=== PATIENT | female | born 1955 | race Caucasian/White ===

== ENCOUNTER 2023-03-13 19:16 | Inpatient (IN) | payer OTHER, MEDICARE ==
[~2023-03-13] VITALS: Ht 152.4 cm; Wt 52.6 kg
[~2023-03-13 19:16] MED LIST: CIPR500T4; QUET50TA; VIC
[2023-03-13 19:18] VITALS: BP 138/88; PULSE 62; RESP 22; TEMP 97.6; O2SAT 94
[2023-03-13 20:42] LABS: BASOPHILS % (AUTO) 0.7 % (0.0-2.0); EOSINOPHILS # (AUTO) 0.1 K/uL (0-0.4); HEMATOCRIT 46.2 % (36-48); HEMOGLOBIN 15.5 g/dL (12.0-16.0); LYMPHOCYTES % (AUTO) 13.6 % (20.5-51.1); MEAN CORPUSCULAR HEMOGLOBIN 34 pg (27-31); MEAN CORPUSCULAR HGB CONC 34 g/dL (33-37); MEAN CORPUSCULAR VOLUME 101.3 fL (80-94); MONOCYTES # (AUTO) 0.7 K/uL (0.8-1.0); MONOCYTES % (AUTO) 9.8 % (1.7-9.3); NEUTROPHILS # (AUTO) 5.4 K/uL (1.8-7.7); NEUTROPHILS % (AUTO) 74.9 % (42.2-75.2); PLATELET COUNT (AUTO) 330 K/uL (140-450); RED BLOOD CELL COUNT(AUTO) 4.56 MIL/uL (4.20-5.40); RED CELL DISTRIBUTION WIDTH 14.1 % (11.6-13.7); WHITE BLOOD COUNT (AUTO) 7.2 K/uL (4.8-10.8)
[2023-03-13 21:08] LABS: ALBUMIN 2.8 g/dL (3.4-5.0); ANION GAP 15.3 (8-16); CALCIUM 8.5 mg/dL (8.5-10.1); CARBON DIOXIDE 28.1 mmol/L (21-32); CREATININE 0.6 mg/dL (0.6-1.3); POTASSIUM 3.4 mmol/L (3.5-5.1); TOTAL BILIRUBIN 0.6 mg/dL (0.0-1.0); TOTAL PROTEIN, SERUM 6.3 g/dL (6.4-8.2)
[2023-03-13] MEDS ORDERED: MAGNESIUM OXIDE 400 MG TAB PO PRN (22:50)
[2023-03-13] MEDS ORDERED: POTASSIUM CHLORIDE 10 MEQ TABER PO PRN (22:50)
[2023-03-13] MEDS ORDERED: ACETAMINOPHEN 325 MG TAB PO PRN (22:50)
[2023-03-13] MEDS ORDERED: KCL 20 MEQ IN 100 mL PREMIX 200 ML IV PRN (22:50)
[2023-03-13] MEDS ORDERED: MAG SULF 2000 MG/WATER PREMIX 50 ML IV PRN (22:50)
[2023-03-13] MEDS: NACL 0.9% 1,000 ML IV SCH (23:47)
[2023-03-14] VITALS (8 sets, daily range): BP systolic 154–165; BP diastolic 83–87; PULSE 68–87; RESP 18–20; TEMP 98–98.3; O2SAT 95–99
[2023-03-14 00:16] LABS: APPEARANCE,URINE CLEAR (CLEAR); BILIRUBIN,URINE 2+ (NEGATIVE); BLOOD, URINE NEGATIVE (NEGATIVE); COLOR,URINE YELLOW (YELLOW); LEUKOCYTE ESTERASE ,URINE NEGATIVE (NEGATIVE); NITRITE, URINE POSITIVE (NEGATIVE); PROTEIN,URINE TRACE (NEGATIVE); UGLUCOSE NEGATIVE (NEGATIVE)
[2023-03-14 00:25] LABS: ICTOTEST POSITIVE (NEGATIVE)
[2023-03-14 00:26] LABS: BACTERIA,URINE 10-30 (MOD) /HPF (None Seen); MUCUS,URINE 1+ /LPF (None Seen); RBC,URINE 0-5 /HPF (0-5); WBC,URINE 0-5 /HPF (0-5)
[2023-03-14] MEDS: HYDROcodone/APAP 5/325 MG 1 TAB TAB PO PRN (03:42)
[2023-03-14] MEDS ORDERED: SENN-74 PO (06:35)
[2023-03-14] MEDS ORDERED: ONDA-188 SL (06:35)
[2023-03-14] MEDS ORDERED: ASPI-1749 PO (06:35)
[2023-03-14] MEDS ORDERED: FURO20TA8 PO (06:35)
[2023-03-14] MEDS ORDERED: TRAM100C PO (06:35)
[2023-03-14] MEDS: NACL 0.9% 1,000 ML IV SCH ×2 (09:33→21:59)
[2023-03-14] MEDS ORDERED: ALBUTEROL 0.083% 2.5 MG/3 ML NEBU INH PRN (14:20)
[2023-03-14] MEDS: ALBUTEROL SULFATE/IPRATROPIU 3 ML SOL IH SCH (20:15)
[2023-03-14] MEDS: PIPERACILLIN/TAZOBACTAM 3.375 GM in DEXTROSE 5% 50 ML IV SCH (21:33)
[2023-03-14] MEDS: methylPREDNISolone SS 40 MG/ML VIAL IVP SCH (21:33)
[2023-03-14] MEDS: ONDANSETRON 4 MG/2 ML VIAL IVP PRN (21:44)
[2023-03-14] MEDS: MORPHINE SULFATE 4 MG/ML SYR IVP PRN (21:45)
[2023-03-15] VITALS (9 sets, daily range): BP systolic 121–154; BP diastolic 69–91; PULSE 60–79; RESP 18–20; TEMP 97.4–97.7; O2SAT 95–100
[2023-03-15] MEDS: HYDROcodone/APAP 5/325 MG 1 TAB TAB PO PRN (00:49)
[2023-03-15] MEDS: ALBUTEROL SULFATE/IPRATROPIU 3 ML SOL IH SCH ×4 (01:00→19:00)
[2023-03-15] MEDS: PIPERACILLIN/TAZOBACTAM 3.375 GM in DEXTROSE 5% 50 ML IV SCH ×3 (04:35→20:58)
[2023-03-15] MEDS: methylPREDNISolone SS 40 MG/ML VIAL IVP SCH ×2 (10:17→20:56)
[2023-03-15] MEDS: QUEtiapine FUMARATE 25 MG TAB PO SCH (10:18)
[2023-03-15] MEDS: MORPHINE SULFATE 4 MG/ML SYR IVP PRN (10:20)
[2023-03-15] MEDS: ONDANSETRON 4 MG/2 ML VIAL IVP PRN (10:30)
[2023-03-15] MEDS: NACL 0.9% 1,000 ML IV SCH (12:22)
[2023-03-15 18:05] LABS: BASOPHILS % (AUTO) 0.3 % (0.0-2.0); HEMATOCRIT 44.5 % (36-48); HEMOGLOBIN 14.8 g/dL (12.0-16.0); LYMPHOCYTES # (AUTO) 0.3 K/uL (2.5-16.5); LYMPHOCYTES % (AUTO) 6.4 % (20.5-51.1); MEAN CORPUSCULAR HEMOGLOBIN 34 pg (27-31); MEAN CORPUSCULAR HGB CONC 33 g/dL (33-37); MEAN CORPUSCULAR VOLUME 102.1 fL (80-94); MONOCYTES # (AUTO) 0.1 K/uL (0.8-1.0); MONOCYTES % (AUTO) 2.3 % (1.7-9.3); NEUTROPHILS # (AUTO) 4.1 K/uL (1.8-7.7); PLATELET COUNT (AUTO) 240 K/uL (140-450); RED BLOOD CELL COUNT(AUTO) 4.36 MIL/uL (4.20-5.40); RED CELL DISTRIBUTION WIDTH 14.2 % (11.6-13.7); WHITE BLOOD COUNT (AUTO) 4.5 K/uL (4.8-10.8)
[2023-03-15 18:30] LABS: ANION GAP 14.8 (8-16); CALCIUM 8.3 mg/dL (8.5-10.1); CREATININE 0.5 mg/dL (0.6-1.3); POTASSIUM 4.8 mmol/L (3.5-5.1)
[2023-03-16] MEDS: ALBUTEROL SULFATE/IPRATROPIU 3 ML SOL IH SCH (01:56)
[2023-03-16 01:57] VITALS: PULSE 70; RESP 18; O2SAT 97
[2023-03-16] MEDS: NACL 0.9% 1,000 ML IV SCH ×2 (02:14→13:20)
[2023-03-16 04:00] VITALS: BP 118/65; PULSE 75; RESP 18; TEMP 97.6; O2SAT 96
[2023-03-16] MEDS: PIPERACILLIN/TAZOBACTAM 3.375 GM in DEXTROSE 5% 50 ML IV SCH ×3 (05:08→22:00)
[2023-03-16 07:00] LABS: BASOPHILS % (AUTO) 0.1 % (0.0-2.0); HEMATOCRIT 44.2 % (36-48); HEMOGLOBIN 14.8 g/dL (12.0-16.0); LYMPHOCYTES # (AUTO) 0.3 K/uL (2.5-16.5); LYMPHOCYTES % (AUTO) 5.8 % (20.5-51.1); MEAN CORPUSCULAR HEMOGLOBIN 34 pg (27-31); MEAN CORPUSCULAR HGB CONC 34 g/dL (33-37); MEAN CORPUSCULAR VOLUME 101.9 fL (80-94); MONOCYTES # (AUTO) 0.2 K/uL (0.8-1.0); MONOCYTES % (AUTO) 4.6 % (1.7-9.3); NEUTROPHILS # (AUTO) 4.6 K/uL (1.8-7.7); NEUTROPHILS % (AUTO) 89.5 % (42.2-75.2); PLATELET COUNT (AUTO) 227 K/uL (140-450); RED BLOOD CELL COUNT(AUTO) 4.34 MIL/uL (4.20-5.40); WHITE BLOOD COUNT (AUTO) 5.2 K/uL (4.8-10.8)
[2023-03-16 07:15] LABS: ALBUMIN 2.6 g/dL (3.4-5.0); ANION GAP 11.3 (8-16); CALCIUM 8.3 mg/dL (8.5-10.1); CARBON DIOXIDE 29.7 mmol/L (21-32); CREATININE 0.5 mg/dL (0.6-1.3); TOTAL BILIRUBIN 0.4 mg/dL (0.0-1.0); TOTAL PROTEIN, SERUM 5.8 g/dL (6.4-8.2)
[2023-03-16 08:00] VITALS: BP 156/72; PULSE 83; RESP 18; TEMP 98.2; O2SAT 97
[2023-03-16] MEDS ORDERED: CLONIDINE HYDROCHLORIDE 0.1 MG TAB PO PRN (08:55)
[2023-03-16] MEDS: methylPREDNISolone SS 40 MG/ML VIAL IVP SCH ×2 (10:07→21:54)
[2023-03-16] MEDS: QUEtiapine FUMARATE 25 MG TAB PO SCH (10:08)
[2023-03-16 12:00] VITALS: BP 143/69; PULSE 82; RESP 18; TEMP 98.2; O2SAT 99
[2023-03-16] MEDS: HYDROcodone/APAP 5/325 MG 1 TAB TAB PO PRN ×2 (15:04→22:02)
[2023-03-16 16:00] VITALS: BP 142/72; PULSE 86; RESP 18; TEMP 98.2; O2SAT 97
[2023-03-16 20:00] VITALS: BP 146/68; PULSE 62; PULSE 83; RESP 18; TEMP 97.3; O2SAT 96; O2SAT 97
[2023-03-17] MEDS: NACL 0.9% 1,000 ML IV SCH (01:50)
[2023-03-17 03:16] VITALS: O2SAT 98
[2023-03-17 04:00] VITALS: BP 156/83; PULSE 51; RESP 17; TEMP 97.5; O2SAT 98
[2023-03-17] MEDS: PIPERACILLIN/TAZOBACTAM 3.375 GM in DEXTROSE 5% 50 ML IV SCH ×2 (05:00→13:00)
[2023-03-17 07:25] LABS: BASOPHILS % (AUTO) 0.2 % (0.0-2.0); EOSINOPHILS % (AUTO) 0.1 % (0.0-4.0); HEMATOCRIT 42.9 % (36-48); HEMOGLOBIN 14.3 g/dL (12.0-16.0); LYMPHOCYTES # (AUTO) 0.6 K/uL (2.5-16.5); LYMPHOCYTES % (AUTO) 8.8 % (20.5-51.1); MEAN CORPUSCULAR HEMOGLOBIN 34 pg (27-31); MEAN CORPUSCULAR HGB CONC 33 g/dL (33-37); MEAN CORPUSCULAR VOLUME 101.2 fL (80-94); MONOCYTES # (AUTO) 0.4 K/uL (0.8-1.0); MONOCYTES % (AUTO) 5.4 % (1.7-9.3); NEUTROPHILS # (AUTO) 5.9 K/uL (1.8-7.7); NEUTROPHILS % (AUTO) 85.5 % (42.2-75.2); PLATELET COUNT (AUTO) 213 K/uL (140-450); RED BLOOD CELL COUNT(AUTO) 4.24 MIL/uL (4.20-5.40); RED CELL DISTRIBUTION WIDTH 13.8 % (11.6-13.7); WHITE BLOOD COUNT (AUTO) 6.9 K/uL (4.8-10.8)
[2023-03-17 07:35] VITALS: PULSE 52; RESP 18; O2SAT 98
[2023-03-17] MEDS: ALBUTEROL SULFATE/IPRATROPIU 3 ML SOL IH SCH ×2 (07:49→13:00)
[2023-03-17 08:00] VITALS: BP 166/94; PULSE 64; RESP 17; TEMP 96.8; O2SAT 96
[2023-03-17] MEDS: HYDROcodone/APAP 5/325 MG 1 TAB TAB PO PRN (08:03)
[2023-03-17] MEDS: methylPREDNISolone SS 40 MG/ML VIAL IVP SCH (09:00)
[2023-03-17 09:07] LABS: ANION GAP 12.1 (8-16); CALCIUM 8.2 mg/dL (8.5-10.1); CARBON DIOXIDE 30.3 mmol/L (21-32); CREATININE 0.4 mg/dL (0.6-1.3); POTASSIUM 3.4 mmol/L (3.5-5.1)
[2023-03-17] MEDS ORDERED: CLONIDINE HYDROCHLORIDE 0.1 MG TAB PO PRN (09:25)
[2023-03-17] MEDS ORDERED: DOCUSATE SODIUM 100 MG GELCAP PO PRN (10:25)
[2023-03-17] MEDS: QUEtiapine FUMARATE 25 MG TAB PO SCH (10:25)
[2023-03-17] MEDS ORDERED: CIPR500T4 PO ×2 (13:26→15:09)
[2023-03-17] MEDS ORDERED: METR-435 PO ×2 (13:26→15:09)
[2023-03-17 13:32] VITALS: PULSE 68; RESP 16; O2SAT 95
[2023-03-17] MEDS ORDERED: PRED20TA5 PO (15:09)
[2023-03-17] MEDS ORDERED: ACET-9525 PO (15:09)
[2023-03-17 16:31] VITALS: BP 158/83; PULSE 68; RESP 16; TEMP 96.8
== END 2023-03-17 17:35 | disposition home or self-care (01) | DRG 244 ==
LOC: MED 20:27 → MTU 22:53 → MED 23:00 → MTU 03-14 07:43
PROVIDERS: ADMIT Internal Medicine; ATTEND Internal Medicine
DX: K57.32 Diverticulitis of large intestine without perforation or abscess without bleeding (principal); E43 Unspecified severe protein-calorie malnutrition; E87.1 Hypo-osmolality and hyponatremia; J96.11 Chronic respiratory failure with hypoxia; J44.1 Chronic obstructive pulmonary disease with (acute) exacerbation; K52.9 Noninfective gastroenteritis and colitis, unspecified; N39.0 Urinary tract infection, site not specified; M81.0 Age-related osteoporosis without current pathological fracture; Z20.822 Contact with and (suspected) exposure to COVID-19; F17.200 Nicotine dependence, unspecified, uncomplicated; E87.6 Hypokalemia; Z90.49 Acquired absence of other specified parts of digestive tract; Z79.82 Long term (current) use of aspirin; Z79.899 Other long term (current) drug therapy; Z68.22 Body mass index [BMI] 22.0-22.9, adult
CPT/HCPCS: 36415; 71045; 80048; 80053; 81001; 83605; 83690; 85025; 87081; 87086; 94640; 99285; J1644; J2270; J2405; J2543; J2920; J7060; J7613; Q9967